=== PATIENT | male | born 1995 | race African-American/Black ===

== ENCOUNTER 2022-10-28 15:49 | Emergency (ER) | payer OTHER, SELFPAY ==
[2022-10-28 16:24] VITALS: BP 127/78; PULSE 80; RESP 16; TEMP 36.7; O2SAT 98
--- NOTE | 2022-10-28 18:35 | ED.GENADULT ---
HPI - General Adult General Chief complaint: Urogenital-Male <Keith Elias PA-C - Last Filed: 10/28/22 20:24> Stated complaint: std check <RENE Cristina Last Filed: 10/28/22 20:24> Time Seen by Provider: 10/28/22 18:34 <Keith Elias PA-C - Last Filed: 10/28/22 20:24> Source: patient <RENE Cristina Last Filed: 10/28/22 20:24> Mode of arrival: ambulatory <RENE Cristina Last Filed: 10/28/22 20:24> Limitations: no limitations <RENE Cristina Last Filed: 10/28/22 20:24> History of Present Illness HPI narrative: This is a 27-year-old male with chief complaint of STD check. Has been having dysuria, penile pain and green discharge for 2 days. Scrotum is nontender. No known positive STD contacts. Otherwise he is asymptomatic. Denies abdominal pain, fevers, chills. <RENE Cristina Last Filed: 10/28/22 20:24> Related Data Allergies/adverse reactions: Allergies Allergy/AdvReac Type Severity Reaction Status Date / Time No Known Allergies Allergy Verified 10/28/22 18:50 <Keith Elias PA-C - Last Filed: 10/28/22 20:24> Review of Systems Review of Systems: CONSTITUTIONAL: Denies fever, chills, or sweats. EYES: Denies visual changes, redness, or discharge. ENT: Denies rhinorrhea, congestion, sore throat, or otalgia. CARDIOVASCULAR: Denies chest pain, palpitations, or edema. RESPIRATORY: Denies cough or dyspnea. GASTROINTESTINAL: Denies abdominal pain, nausea, vomiting, or diarrhea. GENITOURINARY: Endorses dysuria and penile discharge. Denies hematuria or frequency. SKIN: Denies rash or itching. MUSCULOSKELETAL: Denies back pain, joint pain, or myalgia. NEUROLOGIC: Denies headache, numbness, dizziness, or weakness. PSYCHIATRIC: Denies anxiety or depression. <RENE Cristina Filed: 10/28/22 20:24> Exam Narrative: GENERAL: Well-appearing, well-nourished, and in no acute distress. HEAD: Normocephalic, atraumatic. EYES: PERRLA and EOMI. ENT: Nares clear, no rhinorrhea or epistaxis. Mucous membranes moist. Oropharynx without tonsillar hypertrophy exudate or other lesions. NECK: Supple. No adenopathy or masses. CHEST: No respiratory distress. Clear to auscultation. No wheezes rales or rhonchi HEART: Regular rate and rhythm. No murmur heard. Normal peripheral pulses. ABDOMEN: Soft, nontender, nondistended, normal active bowel sounds. : There is no scrotal tenderness or erythema. No drainage from urethral meatus. No overlying skin changes. EXTREMITIES: Normal range of motion. No edema. SKIN: Warm, dry, no rash. NEURO: Alert and oriented x3. No focal deficits. PSYCH: Normal mood and affect. <Keith Elias PA-C - Last Filed: 10/28/22 20:24> Course AGRICULTURE SPECIALIST/PA Physician Supervision This is a was performed by both a physician and an APC. I performed all aspects of the MDM as documented w/ the following additions: 27-year-old presenting with penile discharge. He is here with his significant other who also has STD symptoms. patient will be treated empirically .All questions answered. Patient in agreement w/ disposition. <Mayito Ayala MD - Last Filed: 11/01/22 01:48> Vital Signs Vital signs: Vital Signs Temperature 98.1 F 10/28/22 16:24 Pulse Rate 80 10/28/22 16:24 Respiratory Rate 16 10/28/22 16:24 Blood Pressure 127/78 10/28/22 16:24 Pulse Oximetry 98 10/28/22 16:24 Oxygen Delivery Room Air 10/28/22 16:24 Temperature 98.1 F 10/28/22 16:24 Pulse Rate 76 10/28/22 18:51 Respiratory Rate 16 10/28/22 18:51 Blood Pressure 128/86 10/28/22 18:51 Pulse Oximetry 98 10/28/22 18:51 Oxygen Delivery Room Air 10/28/22 16:24 <Keith Elias PA-C - Last Filed: 10/28/22 20:24> Vital Signs Temperature 98.1 F 10/28/22 16:24 Pulse Rate 80 10/28/22 16:24 Respiratory Rate 16 10/28/22 16:24 Blood Pressure 127/78 10/28/22 16:24 Pulse Oximetry 98 10/28/22 16:24
[2022-10-28 18:51] VITALS: BP 128/86; PULSE 76; RESP 16; O2SAT 98
[2022-10-28 19:17] LABS: Appearance Urine Clear (Clear); Bacteria Urine None Seen /hpf; Bilirubin Urine Negative (Negative); Blood Urine Negative (Negative); Color Urine Yellow (Yellow); Glucose Urine UA Negative (Negative); Ketones Urine Trace mg/dL (Negative); Leukocyte Esterase Ur 2+ LEU/UL (Negative); Nitrate Urine Negative (Negative); Non Pathogenic Casts 0-2; Protein Urine Negative (Negative); RBC Urine 0-2 /hpf (0-2); Specific Grav Ur 1.024 (1.001-1.035); Squamous Epithelial Cell Urine None seen /hpf (Few); WBC Urine 51-100 /hpf; pH Urine 7.5 (5.0-9.0)
[2022-10-28 19:22] LABS: Add Urine Microscopic? YES
[2022-10-28] MEDS: metroNIDAZOLE 250 MG TABLET 2000 MG PO (20:06)
[2022-10-28] MEDS: ONDANSETRON HCL ODT 4 MG TABLET PO (20:25)
[2022-10-28] MEDS: cefTRIAXone 1 GM VIAL 0.5 GM IM (20:25)
== END 2022-10-28 20:30 | disposition home or self-care (01) ==
PROVIDERS: General Practice; Emergency Provider Physician Assistant
DX: Z11.3 Encounter for screening for infections with a predominantly sexual mode of transmission (principal)
CPT/HCPCS: 81001; 87086; 87491; 87591; 96372; 99283; A9270; J0696